=== PATIENT | male | born 1960 | race African-American/Black ===

== ENCOUNTER 2017-08-07 05:56 | Emergency (ER) | payer MEDICAID, OTHER ==
[~2017-08-07] VITALS: Ht 180.3 cm; Wt 90.7 kg
[2017-08-07 07:35] VITALS: BP 153/78
[2017-08-07] MEDS ORDERED: KETOROLAC TROMETH 60MG/2ML VIAL IM ONE (07:45)
== END 2017-08-07 08:11 | disposition home or self-care (01) ==
LOC: ER 05:57
DX: M75.52 Bursitis of left shoulder (principal); G89.29 Other chronic pain; M54.5 Low back pain; Z88.0 Allergy status to penicillin
CPT/HCPCS: 73030; 96372; 99284; J1885

== ENCOUNTER 2018-02-25 08:41 | Emergency (ER) | payer MEDICAID ==
[~2018-02-25] VITALS: Ht 177.8 cm; Wt 86.2 kg
[2018-02-25 08:52] VITALS: BP 131/71
== END 2018-02-25 09:42 | disposition home or self-care (01) ==
LOC: ER 08:41
DX: J02.9 Acute pharyngitis, unspecified (principal)

== ENCOUNTER 2019-02-07 06:25 | Emergency (ER) | payer BC, MEDICAID, OTHER ==
[~2019-02-07] VITALS: Ht 182.9 cm; Wt 88.5 kg
[2019-02-07 06:34] VITALS: BP 120/76
== END 2019-02-07 07:54 | disposition home or self-care (01) ==
LOC: ER 06:25
DX: S62.621A Displaced fracture of middle phalanx of left index finger, initial encounter for closed fracture (principal); Z88.0 Allergy status to penicillin; X50.1XXA Overexertion from prolonged static or awkward postures, initial encounter; Y93.89 Activity, other specified; Y99.8 Other external cause status; Y92.89 Other specified places as the place of occurrence of the external cause
CPT/HCPCS: 29130; 73130

== ENCOUNTER 2019-12-08 01:38 | Emergency (ER) | payer MEDICAID ==
[~2019-12-08] VITALS: Ht 177.8 cm; Wt 90.7 kg
[2019-12-08 05:11] VITALS: BP 157/84
[2019-12-08] MEDS ORDERED: methylPREDNISolone SOD SUCC 125 MG/2 ML VL IM ONE (05:15)
[2019-12-08] MEDS ORDERED: KETOROLAC TROMETH 60MG/2ML VIAL IM ONE (05:15)
== END 2019-12-08 06:04 | disposition home or self-care (01) ==
LOC: ER 01:39
DX: S73.102A Unspecified sprain of left hip, initial encounter (principal); Z88.0 Allergy status to penicillin; X58.XXXA Exposure to other specified factors, initial encounter; Y93.G3 Activity, cooking and baking; Y92.090 Kitchen in other non-institutional residence as the place of occurrence of the external cause; Y99.8 Other external cause status
CPT/HCPCS: 73502; 96372; 99284; J1885; J2930

== ENCOUNTER 2023-08-13 06:01 | Emergency (ER) | payer MEDICAID ==
[~2023-08-13] VITALS: Ht 182.9 cm; Wt 88.0 kg
[2023-08-13 11:15] LABS: Basophils # (auto) 0.1 10 ^3/uL (0-0.2); Eosinophils # (auto) 0.1 10 ^3/uL (0-0.8); Lymphocytes # (auto) 1.1 10 ^3/uL (0.4-5.4); Neutrophils # (auto) 2.5 10 ^3/uL (1.6-8.6); White Blood Cell 4.3 10^3/uL (4.4-10.8)
[2023-08-13 11:18] LABS: Basophils % (auto) 1.3 % (0.0-2.0); Eosinophils % (auto) 1.5 % (0.0-7.0); Hematocrit 38.3 % (41.0-53.0); Hemoglobin 12.2 g/dL (13.5-17.5); Lymphocytes % (auto) 24.7 % (10.0-50.0); Mean Corpuscular Hemoglobin 25.7 pg (28.0-32.0); Mean Corpuscular Hgb Conc. 31.7 g/dL (32.0-36.0); Mean Corpuscular Volume 80.9 fL (80.0-100.0); Monocytes # (auto) 0.6 10 ^3/uL (0-1.3); Neutrophils % (auto) 59.5 % (37.0-80.0); Red Blood Cells 4.74 10^6/uL (4.5-5.90); Red Cell Distribution Width 14.4 % (11.8-14.3)
[2023-08-13 11:36] LABS: Alanine Aminotransferase 30 U/L (7-40); Albumin 4.2 g/dL (3.2-4.8); Alkaline Phosphatase 68 U/L (46-116); Anion Gap 3 (5-15); Aspartate Aminotransferase 29 U/L (13-40); BUN/Creatinine Ratio 6.9 (10.0-20.0); Bilirubin, Total 0.5 mg/dL (0.2-1.0); Blood Urea Nitrogen 9 mg/dL (9-23); Calcium 9.6 mg/dL (8.5-10.1); Carbon Dioxide 26 mmol/L (20-30); Chloride 109 mmol/L (98-107); Creatine Kinase IFCC 223 U/L (46-171); Glucose 100 mg/dL (74-106); Potassium 4.3 mmol/L (3.5-5.1); Sodium 138 mmol/L (136-145); Total Protein 6.5 g/dL (5.7-8.2)
[2023-08-13 11:37] VITALS: BP 149/77; PULSE 68; RESP 15; TEMP 97.8; O2SAT 99
[2023-08-13] MEDS: SODIUM CHLORIDE 0.9% 1,000 ML IV ONE (14:15)
== END 2023-08-13 16:27 | disposition home or self-care (01) ==
LOC: ER 06:01
DX: M79.602 Pain in left arm (principal); F15.90 Other stimulant use, unspecified, uncomplicated; Z79.899 Other long term (current) drug therapy
CPT/HCPCS: 36415; 80053; 82550; 84484; 85025; 93005; 93971